=== PATIENT | male | born 1970 | race Caucasian/White ===

== ENCOUNTER 2024-08-18 17:48 | Emergency (ER) | payer MEDICAID, OTHER ==
[~2024-08-18] VITALS: Ht 175.3 cm; Wt 78.0 kg
[~2024-08-18 17:48] MED LIST: ACET-2708 MT
[2024-08-18 17:53] VITALS: BP 128/84; PULSE 95; RESP 18; TEMP 36.7; O2SAT 95
== END 2024-08-18 20:41 | disposition left against medical advice (07) ==
LOC: ER 17:48
DX: R51.9 Headache, unspecified (principal); Z53.21 Procedure and treatment not carried out due to patient leaving prior to being seen by health care provider